=== PATIENT | male | born 1975 | race Two or more races ===

== ENCOUNTER 2023-10-31 19:34 | Emergency (ER) | payer SELFPAY | END 2023-10-31 22:03 | disposition home or self-care (01) | LOC: MW.ED 19:34 | DX: S80.12XA Contusion of left lower leg, initial encounter (principal); M22.2X2 Patellofemoral disorders, left knee; W22.8XXA Striking against or struck by other objects, initial encounter; Y93.89 Activity, other specified | CPT/HCPCS: 73562-26-LT; 73562-LT; 73590-26-LT; 73590-LT; 99283 ==